=== PATIENT | female | born 1970 | race Caucasian/White ===

== ENCOUNTER 2016-03-28 15:46 | Emergency (ER) | payer MEDICAID ==
[2016-03-28] MEDS ORDERED: ONDANSETRON 4 MG VIAL ONE (20:15)
[2016-03-28] MEDS ORDERED: PHENAZOPYRIDINE 100 MG TAB ONE (20:16)
[2016-03-28] MEDS ORDERED: MORPHINE 4 MG/ML SYR ONE (20:16)
[2016-03-28] MEDS ORDERED: SODIUM CHLORIDE 0.9% 1,000 ML ONE (20:16)
[2016-03-28] MEDS ORDERED: CEFTRIAXONE 1 GM VIAL ONE (21:00)
[2016-03-28] MEDS ORDERED: SODIUM CHLORIDE 0.9% 100 ML IV ONE (21:00)
== END 2016-03-28 22:19 | disposition home or self-care (01) ==
LOC: ER 15:46
DX: N30.01 Acute cystitis with hematuria (principal)
CPT/HCPCS: 36415; 80053; 81001; 83690; 84703; 85025; 87077; 87088; 87186; 96361; 96365; 96375